=== PATIENT | male | born 1985 | race Caucasian/White ===

== ENCOUNTER 2017-01-23 02:43 | Emergency (ER) | payer SELFPAY ==
[~2017-01-23 02:43] MED LIST: HYDR-79 PO
[2017-01-23 02:55] VITALS: BP 144/92
--- NOTE | 2017-01-23 03:39 | PHYS DOC ---
General Chief Complaint: ABSCESS Stated Complaint: BUMPS,RASH Time Seen by MD: 02:54 Source: patient, other Problems: History of Present Illness Initial Comments Patient with female friend for groin abscess. Patient says these noted some "spots" in his groin area for the last week or so. However, there is one particular area that seems to be increasing redness and pain and swelling. He says got to the point where makes it difficult to get up and walk around, though he has been able to go to work. He is here now because he got off work and was able to come to the ED. He also has a small area of redness and swelling in the left upper arm, but when the groin is one of his most concern. 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 Apparently had an abscess on his neck earlier this year that eventually resolved, but only after the girlfriend popped it and hold Altocor twice. He's had no fever or chills with this. There is no runny nose or sore throat. There is no chest pain or shortness of breath. No nausea vomiting or abdominal pain. There is no change amount of bladder habits he has no focal extremity or neurologic complaints. There is specifically no numbness weakness or tingling within the right lower extremity. Patient's past medical history is otherwise unremarkable. He is currently on no medications. He is a nonsmoker and nonuser of ethanol. His last tetanus is unknown. Allergies: Coded Allergies: No Known Drug Allergies (Unverified , 10/27/16) Past Medical History Medical History: no pertinent history Surgical History: noncontributory Social History Smoker: non-smoker Alcohol: none Review of Systems All Other Systems: Reviewed and Negative Physical Exam General Appearance: WD/WN, no apparent distress Neck: full range of motion, supple, normal inspection Respiratory: lungs clear, normal breath sounds, no respiratory distress Cardiovascular: regular rate, rhythm, no edema Gastrointestinal: non tender, soft, no organomegaly Back: no CVA tenderness, no vertebral tenderness Extremities: other Neurologic/Psychiatric: no motor/sensory deficits, alert, normal mood/affect, oriented x 3 Skin: warm/dry Lymphatic: no adenopathy Comments Generally this well-developed well-nourished white male in no acute distress.. Vitals are as noted. Pertinent findings on physical exam shows chest to be clear. Cardiac vascular exams unremarkable. Back shows no CVA tenderness. Abdomen is soft and nontender without masses or organomegaly. Is no. He'll findings. Extremities show the patient to have about a 3 cm area of erythema, induration, and tenderness surrounding some central fluctuance. The areas very well circumscribed. It is located in the right groin area. He does appear to be skin abscess. There are no distal motor sensory or vascular deficits noted within the right lower extremity. Neurologic exam finds patient awake alert oriented and cooperative. Remainder of physical exam is clinically unremarkable. Orders, Labs, Meds Old charts note a single prior ER visit October this year for abscess to the neck. I discussed with the patient and his female friend that I think his granulation will require incision and drainage does appear to be relatively early abscess formation. After discussion, they're agreeable to same. The patient's extremely needle shy, and I did provide significant reassurance and explained the procedure restaffed away. The girlfriend is very helpful in trying to work with the patient and encouraged him to have the procedure done. Under sterile technique and 1% lidocaine without epinephrine anesthesia, the abscess area was incised. He was explored with forceps and loculations were broken up. There is a relatively small amount of necrotic debris removed. The patient actually had no pain with the incision itself after injection, but did have significant discomfort with exploration and breaking up a partitions. The abscess cavity was copiously irrigated with saline and packed with small amount of quarter- inch gauze. Patient tolerated the procedure fairly well. I discussed with patient and his girlfriend, seems to be assuming most of her spinous possibility for medical care, home care of the abscess. We'll keep this open and let it heal by secondary intention. We'll ask her to follow up with primary care provider in several days' time. The back is not fallen out by then, they can remove the packing that time. We'll also get him started on some appropriate pain medicine and antibiotics, with doses here tonight prior to departure from the emergency department. We also discussed the small arm lesion , which at this point does not appear to be fluctuant. However, this may represent another abscess about to start. Hopefully the antibiotics will cyst with this, but I did explain the girlfriend this becomes more red, angry, painful, swollen, or drainage of pus, this may require incision and drainage as well. Growth and wants to know why these keep happening. I suggested it's hard to know why some people are carriers, but conditions such as hepatitis, HIV, or new problems or diabetes can lead to recurrent abscesses. I did encourage the need to follow-up with primary care. She voices understanding. They have no local physician so I will provide referral list. The patient is resting at this time, and no further acute distress, okay for discharge home with his female friend. IMMANUEL ROUSSEAU MD Jan 23, 2017 03:39
[2017-01-23] MEDS ORDERED: SMZ/TMP 800/160MG TABLET. PO ONE (03:45)
[2017-01-23] MEDS ORDERED: HYDROcodone/APAP 10/325 1 TAB TABLET PO ONE (03:45)
[2017-01-23] MEDS ORDERED: TETANUS AND DIPHTHERIA TOX/PF 0.5 ML VIAL. VAX IM ONE (04:00)
== END 2017-01-23 04:00 | disposition home or self-care (01) ==
LOC: ER 02:47
DX: L02.214 Cutaneous abscess of groin (principal); Z86.14 Personal history of Methicillin resistant Staphylococcus aureus infection
CPT/HCPCS: 99284-25

== ENCOUNTER 2017-07-02 19:58 | Emergency (ER) | payer SELFPAY ==
[~2017-07-02] VITALS: Ht 165.1 cm; Wt 68.1 kg
--- NOTE | 2017-07-02 20:17 | PHYS DOC ---
Past History Past Medical History: Other Past Surgical History: No Surgical History Alcohol Use: None Drug Use: None Adult General Chief Complaint Chief Complaint: FOOT INJURY PAIN HPI HPI Patient is a 31 year old M who presents with right ankle swelling. Patient states his boot was rubbing against the back of his heel created a lesion which is caused increased swelling to her ankle for the past 2 days. Patient denies any trauma to the ankle. Patient states he has a lesion to his Achilles tendon which is from his boot. Patient states he has pain while walking. Patient denies any fevers. Patient denies any other symptoms. Review of Systems Review of Systems GEN: Denies fevers, chills, sweats HEENT: Denies blurred vision, sore throat CV: Denies chest pain RESP: Denies shortness of air, cough GI: Denies n/v/d NEURO: Denies confusion, dizziness MSK: Right ankle pain Allergies Allergies Allergies Coded Allergies Type Severity Reaction Last Updated Verified No Known Drug Allergies 10/27/16 No Physical Exam Physical Exam GEN.: No apparent distress. Alert and oriented. HEENT: Head is normocephalic, atraumatic NECK: Supple. LUNGS: CTAB. HEART: RRR, S1, S2 present. Peripheral pulses intact ABDOMEN: Soft, nontender. Positive bowel sounds. EXTREMITIES: Without any cyanosis, right ankle swollen with a lesion to the Achilles tendon that looks like an abscess with a area of induration approximately 2 cm and no fluctuance, no tenderness to palpation to the medial or lateral malleolus, multiple lesions to the dorsum of the foot which patient states they're mosquito bites NEUROLOGIC: Normal speech, normal tone PSYCHIATRIC: Normal affect, normal mood. SKIN: No ulcerations EKG EKG [] Radiology/Procedures Radiology/Procedures X-ray of the right ankle no obvious fracture[] Course & Med Decision Making Course & Med Decision Making Pertinent Labs and Imaging studies reviewed. (See chart for details) ED course: Patient was seen and examined emergency room x-ray of the right ankle were ordered along with a CBC and BMP 2058: Patient was updated on x-ray findings and lab results. Explained the patient we will treat him for possible cellulitis to the foot and recommended short-term follow up with PCP next one to 2 days. Explained to the patient I do not believe he is a septic joint at this time. MDM: After reviewing the chart, CC/HPI/PMH, physical exam, [lab results], [ radiological results], I believe the patient has an acute cellulitis from an open wound to his Achilles that we treated with oral antibiotics and discharged home. I do not believe the patient has a septic joint at this time. Recommended short-term follow-up with his PCP in one to 2 days. Patient is stable for discharge. Additional verbal discharge instructions were provided to the patient and that if symptoms get worse or any new symptoms arise that are worrisome to the patient he is to return to the emergency room immediately [] Dragon Disclaimer Dragon Disclaimer This chart was dictated in whole or in part using Voice Recognition software in a busy, high-work load, and often noisy Emergency Department environment. It may contain unintended and wholly unrecognized errors or omissions. Departure Departure: Impression: Primary Impression: Cellulitis and abscess of foot Disposition: HOME, SELF-CARE Condition: IMPROVED Referrals: PCP,NO (PCP) Patient Instructions: Cellulitis, [id number] Additional Instructions: Please follow-up with your family physician in the next one to 2 days and return if symptoms increase Scripts Cephalexin (KEFLEX) 500 Mg Capsule 1 CAP PO TID, #30 CAP Prov: SARAH HARDWICK DO 07/02/17 Sulfamethoxazole/Trimethoprim (BACTRIM DS TABLET) 1 Each Tablet 1 TAB PO BID for 10 Days, #20 TAB Prov: SARAH HARDWICK DO 07/02/17 SARAH HARDWICK DO Jul 02, 2017 20:17
[2017-07-02 20:37] LABS: BASO # 0.1 x10^3/uL (0.0-0.2); BASO % 1 % (0-3); EOS # 0.1 x10^3/uL (0.0-0.7); EOS % 1 % (0-3); HEMATOCRIT 44.5 % (39.0-53.0); HEMOGLOBIN 15.4 g/dL (13.0-17.5); LYMPH # 3.9 x10^3/uL (1.0-4.8); LYMPH % 33 % (24-48); MEAN CORPUSCULAR HEMOGLOBIN 30 pg (25-35); MEAN CORPUSCULAR HGB CONC 35 g/dL (31-37); MEAN CORPUSCULAR VOLUME 88 fL (79-100); MONO % 9 % (0-9); NEUT # 6.8 x10^3uL (1.8-7.7); NEUT % 57 % (31-73); PLATELET COUNT 203 x10^3/uL (140-400); RED BLOOD COUNT 5.08 x10^6/uL (4.30-5.70); RED CELL DISTRIBUTION WIDTH 13.5 % (11.5-14.5); WHITE BLOOD COUNT 11.9 x10^3/uL (4.0-11.0)
[2017-07-02 20:42] LABS: CALCIUM 9.1 mg/dL (8.5-10.1); CREATININE 1.1 mg/dL (0.7-1.3); GFR 79.1; POTASSIUM 3.6 mmol/L (3.5-5.1)
[2017-07-02] MEDS ORDERED: SULF1TAB24 PO (21:03)
[2017-07-02] MEDS ORDERED: CEPH-264 PO (21:03)
--- NOTE | 2017-07-03 07:30 | RAD ---
EXAM: Right ankle 3 views. HISTORY: Right ankle pain and swelling. COMPARISON: None. FINDINGS: Three views of the right ankle are obtained. No fractures are identified. Alignment is normal. Joint spaces are maintained. There is soft tissue swelling medially and laterally. IMPRESSION: 1. Soft tissue swelling. No fracture.
== END 2017-07-02 21:08 | disposition home or self-care (01) ==
LOC: ER 19:58
DX: L03.115 Cellulitis of right lower limb (principal)
CPT/HCPCS: 36415; 73610; 80048; 85025; 99285-25

== ENCOUNTER 2019-12-08 01:15 | Emergency (ER) | payer SELFPAY ==
[~2019-12-08] VITALS: Ht 165.1 cm; Wt 86.1 kg
[2019-12-08 01:15] VITALS: BP 137/93
[~2019-12-08 01:15] MED LIST changes: +CEPH-264 PO; +HYDR-1179 PO; -HYDR-79 PO; +SULF1TAB24 PO
--- NOTE | 2019-12-08 01:22 | PHYS DOC ---
Past History Past Medical History: No Pertinent History Past Surgical History: No Surgical History Alcohol Use: None Drug Use: None Adult General Chief Complaint Chief Complaint: ".. I am getting an infection in this Lt. arm..." HPI HPI Patient is a 34 year old male who presents with above hx and complaints Lt. arm pain. Patient has what appears to be a needle pham surrounding erythema in left antecubital space.. No pointing abscess yet.. Area of cellulitis appears to be 16 x 14 cm no striations. Patient is right-hand dominant. Patient has MRSA in the past. Patient denies IV drug use. Review of Systems Review of Systems Constitutional: Denies fever or chills [] Eyes: Denies change in visual acuity, redness, or eye pain [] HENT: Denies nasal congestion or sore throat [] Respiratory: Denies cough or shortness of breath [] Cardiovascular: No additional information not addressed in HPI [] GI: Denies abdominal pain, nausea, vomiting, bloody stools or diarrhea [] : Denies dysuria or hematuria [] Musculoskeletal: Denies back pain or joint pain [] Integument: Left antecubital cellulitis Neurologic: Denies headache, focal weakness or sensory changes [] Endocrine: Denies polyuria or polydipsia [] All other systems were reviewed and found to be within normal limits, except as documented in this note. Family History Family History Noncontributory Current Medications Current Medications See nursing for home meds Allergies Allergies Allergies Coded Allergies Type Severity Reaction Last Updated Verified No Known Drug Allergies 10/27/16 No Physical Exam Physical Exam Constitutional: Well developed, well nourished, moderate acute distress, non- toxic appearance. [] HENT: Normocephalic, atraumatic, bilateral external ears normal, oropharynx moist, no oral exudates, nose normal. [] Eyes: PERRLA, EOMI, conjunctiva normal, no discharge. [] Neck: Normal range of motion, no tenderness, supple, no stridor. [] Cardiovascular:Heart rate regular rhythm, no murmur [] Lungs & Thorax: Bilateral breath sounds clear to auscultation [] Abdomen: Bowel sounds normal, soft, no tenderness, no masses, no pulsatile masses. [] Skin: Warm, dry, no erythema, no rash. Septic findings of left antecubital cellulitis as per history of present illness. Tattoos. Back: No tenderness, no CVA tenderness. [] Extremities: No tenderness, no cyanosis, no clubbing, ROM intact, no edema. [] Neurologic: Alert and oriented X 3, normal motor function, normal sensory function, no focal deficits noted. [] Psychologic: Affect normal, judgement normal, mood normal. [] EKG EKG [] Radiology/Procedures Radiology/Procedures [] Course & Med Decision Making Course & Med Decision Making Pertinent Labs and Imaging studies reviewed. (See chart for details) Patient use moist salt compresses or Epsom salts compresses 4 times a day. Massage area Polysporin 4 times a day. Patient take Bactrim DS twice a day. Patient follow-up primary care. If he develops an abscess he may need to have it drained. Return if any concerns. Impression: 1. Cellulitis - Lt. antecubital space [] Dragon Disclaimer Dragon Disclaimer This electronic medical record was generated, in whole or in part, using a voice recognition dictation system. Departure Departure: Disposition: 01 HOME/RESIDENCE PRIOR TO ADM Condition: STABLE Referrals: PCP,NO (PCP) Scripts Sulfamethoxazole/Trimethoprim (BACTRIM DS TABLET) 1 Each Tablet 1 TAB PO BID for cellulitis for 10 Days, #20 TAB 0 Refills Prov: MARIANELA SNIGH MD 12/08/19 John Disclaimer This chart was dictated in whole or in part using Voice Recognition software in a busy, high-work load, and often noisy Emergency Department environment. It may contain unintended and wholly unrecognized errors or omissions. MARIANELA SINGH MD Dec 08, 2019 01:21
[2019-12-08] MEDS ORDERED: DIPHTH,PERTUSS(ACELL),TET TOX 0.5 ML DISP.SYRIN. VAX IM ONE (02:15)
[2019-12-08] MEDS ORDERED: SMZ/TMP 800/160MG TABLET. PO ONE (02:15)
[2019-12-08] MEDS ORDERED: SULF1TAB24 PO (02:16)
[2019-12-08] MEDS ORDERED: cefTRIAXone SODIUM 1 GM VIAL ONE (02:25)
[2019-12-08] MEDS ORDERED: cefTRIAXone IM 1 GM VIAL IM ONE (02:30)
== END 2019-12-08 02:47 | disposition home or self-care (01) ==
LOC: ER 01:15
DX: L03.114 Cellulitis of left upper limb (principal)
CPT/HCPCS: 90471; 90715; 96372; 99284; J0696

== ENCOUNTER 2021-02-09 19:00 | Emergency (ER) | payer SELFPAY ==
[~2021-02-09] VITALS: Ht 165.1 cm; Wt 86.1 kg
[2021-02-09 19:14] VITALS: BP 145/88
[2021-02-09] MEDS ORDERED: TRIA15OI9 TP (19:36)
[2021-02-09] MEDS ORDERED: MUPI15CR8 TP (19:36)
--- NOTE | 2021-02-09 19:36 | PHYS DOC ---
Past History Past Medical History: MRSA Past Surgical History: No Surgical History Alcohol Use: None Drug Use: None General Adult EDM: Chief Complaint: SKIN PROBLEM HPI: HPI: 35-year-old male presents with scalp rash and rash on the left side of his mouth. Patient states that he has had this scalp rash for about a month. It waxes and wanes, but does not go away. It seems to be getting worse. The patient wears a mask a lot and is always wearing a hard hat at work. It is worse along the band where the hard hat sits on his scalp. The area on the left side of his mouth started off from a small cut and has gotten bigger and has a yellow crusting to it. Neither of these rashes itch all the time but they do sometimes. Patient denies fever or chills. He has no other complaints at this time. Review of Systems: Review of Systems: Constitutional: Denies fever or chills Eyes: Denies change in visual acuity HENT: Denies nasal congestion or sore throat Respiratory: Denies cough or shortness of breath Cardiovascular: Denies chest pain or edema GI: Denies abdominal pain, nausea, vomiting, bloody stools or diarrhea : Denies dysuria Musculoskeletal: Denies back pain or joint pain Integument: Rash on scalp and face Neurologic: Denies headache, focal weakness or sensory changes Endocrine: Denies polyuria or polydipsia Lymphatic: Denies swollen glands Psychiatric: Denies depression or anxiety Allergies: Allergies: Allergies Coded Allergies Type Severity Reaction Last Updated Verified No Known Drug Allergies 10/27/16 No Physical Exam: PE: Constitutional: Well developed, well nourished, no acute distress, non-toxic appearance. [] HENT: Normocephalic, atraumatic, bilateral external ears normal, oropharynx moist, no oral exudates, nose normal. [] Eyes: PERRLA, EOMI, conjunctiva normal, no discharge. [] Neck: Normal range of motion, no tenderness, supple, no stridor. [] Cardiovascular:Heart rate regular rhythm, no murmur [] Lungs & Thorax: Bilateral breath sounds clear to auscultation [] Abdomen: Bowel sounds normal, soft, no tenderness, no masses, no pulsatile masses. [] Skin: Impetigo of the left side of the mouth. Plaque areas in a bandlike pattern around the scalp consistent with psoriasis. [] Back: No tenderness, no CVA tenderness. [] Extremities: No tenderness, no cyanosis, no clubbing, ROM intact, no edema. [] Neurologic: Alert and oriented X 3, normal motor function, normal sensory function, no focal deficits noted. [] Psychologic: Affect normal, judgement normal, mood normal. [] Current Patient Data: Vital Signs: Vital Signs Date Time Temp Pulse Resp B/P (MAP) Pulse Ox O2 Delivery O2 Flow Rate FiO2 02/09/21 19:14 98.2 102 18 145/88 (107) 98 Room Air EKG: EKG: [] Radiology/Procedures: Radiology/Procedures: [] Heart Score: C/O Chest Pain: N/A Risk Factors: Risk Factors: DM, Current or recent (<one month) smoker, HTN, HLP, family history of CAD, obesity. Risk Scores: Score 0 - 3: 2.5% MACE over next 6 weeks - Discharge Home Score 4 - 6: 20.3% MACE over next 6 weeks - Admit for Clinical Observation Score 7 - 10: 72.7% MACE over next 6 weeks - Early Invasive Strategies Course & Med Decision Making: Course & Med Decision Making Pertinent Labs and Imaging studies reviewed. (See chart for details) The patient appears to have scalp psoriasis and impetigo. I will treat him with triamcinolone topical ointment for the psoriasis and mupirocin for his impetigo. The patient is stable for discharge at this time. [] John Disclaimer: John Disclaimer: This electronic medical record was generated, in whole or in part, using a voice recognition dictation system. Departure Departure: Impression: Primary Impression: Scalp psoriasis Additional Impression: Impetigo Disposition: HOME / SELF CARE / HOMELESS Condition: STABLE Referrals: PCP,NO (PCP) Patient Instructions: Impetigo, Psoriasis, [id number] Scripts Mupirocin Calcium (MUPIROCIN) 15 Gm Cream..g. 1 RHONA TP TID for impetigo for 10 Days, #30 GM 0 Refills Prov: LATOYA DOMINGUEZ DO 02/09/21 Triamcinolone Acetonide (TRIAMCINOLONE ACETONIDE 0.5% OINT) 15 Gm Oint...g. 1 RHONA TP BID PRN for RASH, #60 GM 0 Refills apply to affected area(s) Prov: LATOYA DOMINGUEZ DO 02/09/21 LATOYA DOMINGUEZ DO February 09, 2021 19:36
== END 2021-02-09 19:43 | disposition home or self-care (01) ==
LOC: ER 19:00
DX: L40.8 Other psoriasis (principal); L01.00 Impetigo, unspecified
CPT/HCPCS: 99283-25

== ENCOUNTER 2021-08-29 20:44 | Emergency (ER) | payer SELFPAY ==
[~2021-08-29] VITALS: Ht 165.1 cm; Wt 83.1 kg
[~2021-08-29 20:44] MED LIST changes: +MUPI15CR8 TP; +TRIA15OI9 TP
[2021-08-29] MEDS ORDERED: ACETAMINOPHEN/CODEINE 300/30MG 4TABLET STARTPACK. PO ONE (21:30)
[2021-08-29] MEDS ORDERED: AMOX1TAB61 PO (21:30)
[2021-08-29] MEDS ORDERED: AMOXICILLIN/K CLAV 875/125MG TABLET. PO ONE (21:30)
--- NOTE | 2021-08-29 21:31 | PHYS DOC ---
Past History Past Medical History: MRSA Past Surgical History: No Surgical History Additional Smoking Information: 1/2 pack/day Alcohol Use: None Drug Use: None Adult General Chief Complaint Chief Complaint: EARACHE/EAR PAIN HPI HPI Patient is a otherwise healthy 36-year-old male who presents with a chief com plaint of right ear pain for 2 days. Denies any recent travels, traumas, illnesses, fevers, pain or trouble swallowing, chest pain, shortness of breath, abdominal pain, nausea, vomiting, diarrhea. Denies any known ill contacts. States he did have ear infections several times as a child but had not had one in years. Review of Systems Review of Systems Review of systems otherwise unremarkable except noted in HPI Allergies Allergies Allergies Coded Allergies Type Severity Reaction Last Updated Verified No Known Drug Allergies 10/27/16 No Physical Exam Physical Exam Constitutional: Well developed, well nourished, no acute distress, non-toxic appearance. [] HENT: Normocephalic, atraumatic, bilateral external ears normal, right tympanic membrane, bulging, opaque with some surrounding erythema, oropharynx moist, no oral exudates, nose normal. [] Eyes: conjunctiva normal, no discharge. [] Neck: Normal range of motion, no tenderness, supple, no stridor, no lymphadenopathy. [] Cardiovascular:Heart rate regular rhythm, no murmur [] Lungs & Thorax: Bilateral breath sounds clear to auscultation [] Neurologic: Alert and oriented X 3, no focal deficits noted. [] Psychologic: Affect normal, judgement normal, mood normal. [] Current Patient Data Vital Signs Vital Signs Date Time Temp Pulse Resp B/P (MAP) Pulse Ox O2 Delivery O2 Flow Rate FiO2 08/29/21 20:58 97.9 96 16 144/92 (109) 100 Room Air EKG EKG [] Radiology/Procedures Radiology/Procedures [] Heart Score C/O Chest Pain: No Risk Factors: Risk Factors: DM, Current or recent (<one month) smoker, HTN, HLP, family history of CAD, obesity. Risk Scores: Risk Factors: DM, Current or recent (<one month) smoker, HTN, HLP, family history of CAD, obesity. Course & Med Decision Making Course & Med Decision Making Patient is a 36-year-old male who presents with right ear pain Vital signs with mild hypertension. Physical exam noted above. Given ibuprofen. Given first dose of antibiotics for otitis media in the ED. Discussed all findings with patient. Discussed symptom management at home. Advised to follow-up with primary care physician as soon as he can and given local resources to assist with this. Gave return precautions to the ED. Patient grateful, verbalized understanding and agree with plan of discharge. [] Dragon Disclaimer Dragon Disclaimer This electronic medical record was generated, in whole or in part, using a voice recognition dictation system. Departure Departure: Impression: Primary Impression: Otitis media Disposition: HOME / SELF CARE / HOMELESS Condition: GOOD Referrals: PCP,NO (PCP) JAMAL MERLOS MD Patient Instructions: Otitis Media, Adult Additional Instructions: Thank you for coming into the emergency department tonight Us to take care of you. Please read the attached information carefully to go back over some of the things we discussed. Please continue a Tylenol and ibuprofen regimen as needed. Please take all your antibiotics as prescribed. Is very important you follow-up with a primary care physician to set up a follow-up visit. You are given local resources to help facilitate this. Please come back with new or concerning symptoms as we discussed. Scripts Amoxicillin/Potassium Clav (AUGMENTIN 875-125 TABLET) 1 Each Tablet 1 TAB PO BID for otitis media for 10 Days, #19 TAB 0 Refills Prov: GURWINDER CASSIDY MD 08/29/21 GURWINDER CASSIDY MD Aug 29, 2021 21:31
[2021-08-29 21:50] VITALS: BP 142/88
== END 2021-08-29 21:55 | disposition home or self-care (01) ==
LOC: ER 20:44
DX: H66.91 Otitis media, unspecified, right ear (principal); F17.200 Nicotine dependence, unspecified, uncomplicated
CPT/HCPCS: 99283

== ENCOUNTER 2022-01-23 04:09 | Emergency (ER) | payer SELFPAY ==
[~2022-01-23] VITALS: Ht 165.1 cm; Wt 81.9 kg
[~2022-01-23 04:09] MED LIST changes: +AMOX1TAB61 PO
[2022-01-23] MEDS ORDERED: CLIN-95 PO (04:22)
--- NOTE | 2022-01-23 04:22 | PHYS DOC ---
Past History Past Medical History: MRSA Past Surgical History: No Surgical History Alcohol Use: None Drug Use: None Adult General HPI HPI Patient is a 36-year-old male who presents to the emergency department with a chief complaint of abscess on the neck that has been draining for the last couple of days. States he is popped a couple of times and thinks it is because of an ingrown hair. Denies any recent travels, traumas, illnesses, fevers, neck pain, pain or trouble swallowing, chest pain, shortness of breath, abdominal pain, nausea, vomiting. Review of Systems Review of Systems Review of systems otherwise unremarkable except noted in HPI Allergies Allergies Allergies Coded Allergies Type Severity Reaction Last Updated Verified No Known Drug Allergies 10/27/16 No Physical Exam Physical Exam Constitutional: Well developed, well nourished, no acute distress, non-toxic appearance. [] HENT: Normocephalic, atraumatic, Eyes: conjunctiva normal, no discharge. [] Neck: Normal range of motion, no tenderness, supple, no stridor. [] Cardiovascular:Heart rate regular rhythm, no murmur [] Extremities: No tenderness, ROM intact, no edema. [] Neurologic: Alert and oriented X 3, normal motor function, normal sensory function, no focal deficits noted. [] Psychologic: Affect normal, judgement normal, mood normal. [] EKG EKG [] Radiology/Procedures Radiology/Procedures [] Heart Score C/O Chest Pain: No Risk Factors: Risk Factors: DM, Current or recent (<one month) smoker, HTN, HLP, family history of CAD, obesity. Risk Scores: Risk Factors: DM, Current or recent (<one month) smoker, HTN, HLP, family history of CAD, obesity. Course & Med Decision Making Course & Med Decision Making Patient is a 36-year-old male who presents with a chief complaint of abscess Vital signs nonconcerning. Physical exam noted above. Patient with 1 cm fluctuant abscess on the neck that is already draining Patient requested antibiotic treatment only and no needle aspirations or incision and drainage. Started on antibiotics in the ED Discussed symptom management at home. Given pain medicine in the ED. Advised to follow-up with primary care physician in the morning Gave return precautions to the ED. Patient grateful, verbalized understanding and agreed with plan of discharge. [] Dragon Disclaimer Dragon Disclaimer This electronic medical record was generated, in whole or in part, using a voice recognition dictation system. Departure Departure: Impression: Primary Impression: Abscess Disposition: HOME / SELF CARE / HOMELESS Condition: STABLE Referrals: PCP,KATIE (PCP) JAMAL MERLOS MD Patient Instructions: Abscess, Abscess, Care After Additional Instructions: Thank for coming into the emergency department tonight and allowing us to take care of you. Please read the attached information carefully to go over things we discussed. Please take your antibiotics as prescribed and until gone. You can also use multiple hot compresses daily to promote drainage. Please do not stick, stab or squeeze and let it drain on its own. Please follow-up with your primary care physician as soon as you can update on ED visit and set up a follow-up. He can use Tylenol, ibuprofen, Benadryl as well as needed for symptom control. Please come back with new or concerning symptoms as discussed. Scripts Clindamycin Hcl (CLINDAMYCIN HCL) 300 Mg Capsule 1 CAP PO TID for abscess for 7 Days, #21 CAP Prov: GURWINDER CASSIDY MD 01/23/22 GURWINDER CASSIDY MD Jan 23, 2022 04:22
[2022-01-23 04:30] VITALS: BP 119/72
[2022-01-23] MEDS ORDERED: IBUPROFEN 600 MG TABLET. PO ONE (05:00)
[2022-01-23] MEDS ORDERED: CLINDAMYCIN HCL 150 MG CAPSULE PO ONE (05:00)
== END 2022-01-23 04:40 | disposition home or self-care (01) ==
LOC: ER 04:09
DX: L02.11 Cutaneous abscess of neck (principal); Z86.14 Personal history of Methicillin resistant Staphylococcus aureus infection
CPT/HCPCS: 99283